=== PATIENT | male | born 2000 | race Hispanic/Latino ===

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

== ENCOUNTER 2023-12-26 10:14 | Emergency (ER) | payer MEDICAID, OTHER ==
[~2023-12-26] VITALS: Ht 170.2 cm; Wt 81.6 kg
[~2023-12-26 10:14] MED LIST: AMOX-429 PO; IBUP-1493 PO; SULF1TAB42 PO
[2023-12-26 11:21] LABS: SARS-CoV-2, RNA, NAAT NEGATIVE SARS CoV-2 (NEGATIVE)
[2023-12-26 11:23] LABS: APPEARANCE,URINE CLEAR (CLEAR); BILIRUBIN,URINE NEGATIVE (NEGATIVE); COLOR,URINE YELLOW (YELLOW); GLUCOSE, URINE (UA) NEGATIVE (NEGATIVE); KETONES,URINE 5 mg/dL (NEGATIVE); LEUKOCYTE ESTERASE ,URINE NEGATIVE Leu/uL (NEGATIVE); NITRATE,URINE NEGATIVE (NEGATIVE); OCCULT BLOOD,URINE NEGATIVE (NEGATIVE); PROTEIN,URINE 20 mg/dL (NEGATIVE); UROBILINOGEN,URINE 0.2 mg/dL (0.2-1.0)
[2023-12-26 11:24] LABS: ADD UA MICROSCOPIC YES
[2023-12-26 11:26] LABS: MUCUS,URINE RARE LPF (None Seen); RBC,URINE 0-1 /HPF (0-1); SQUAMOUS EPITHELIAL CELL,UR RARE /HPF (0-2)
[2023-12-26 11:37] LABS: INFLUENZA TYPE A Negative For Type A (NEGATIVE); INFLUENZA TYPE B Negative For Type B (NEGATIVE)
[2023-12-26 12:17] LABS: RAPID GROUP A STREP positive (NEGATIVE)
[2023-12-26] MEDS ORDERED: AMOX1TAB16 PO (12:23)
[2023-12-26] MEDS ORDERED: IBUP-2070 PO (12:23)
[2023-12-26 12:31] VITALS: BP 131/81; PULSE 84; RESP 18; O2SAT 100
[2023-12-26] MEDS ORDERED: ONDA4TAB10 PO (12:32)
== END 2023-12-26 12:35 | disposition home or self-care (01) ==
LOC: EDH 10:14
DX: J02.0 Streptococcal pharyngitis (principal); M54.50 Low back pain, unspecified; Z20.822 Contact with and (suspected) exposure to COVID-19; Z79.899 Other long term (current) drug therapy
CPT/HCPCS: 81001; 87635; 87804; 87880